=== PATIENT | female | born 2000 | race Caucasian/White ===

== ENCOUNTER 2023-04-06 03:24 | Emergency (ER) | payer BC ==
[~2023-04-06] VITALS: Ht 165.1 cm; Wt 68.0 kg
[2023-04-06 05:17] VITALS: BP 139/88; TEMP 98.6; O2SAT 98
[2023-04-06] MEDS ORDERED: AMOX-430 PO (05:20)
== END 2023-04-06 05:24 | disposition home or self-care (01) ==
LOC: ER 03:25
DX: J02.9 Acute pharyngitis, unspecified (principal); Z79.899 Other long term (current) drug therapy